=== PATIENT | male | born 2005 | race Caucasian/White ===

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

== ENCOUNTER 2023-02-10 15:43 | Emergency (ER) | payer MEDICAID ==
[2023-02-10] MEDS ORDERED: Bacitracin Oint 1 GM U/D Packet TOP ONE (16:53)
== END 2023-02-10 16:57 | disposition home or self-care (01) ==
LOC: JP.ED 15:43
DX: S01.01XA Laceration without foreign body of scalp, initial encounter (principal); E03.9 Hypothyroidism, unspecified; Z86.16 Personal history of COVID-19; Z88.8 Allergy status to other drugs, medicaments and biological substances; Z79.899 Other long term (current) drug therapy; W19.XXXA Unspecified fall, initial encounter
CPT/HCPCS: 12002; 70450; 99283